=== PATIENT | male | born 1950 | race Asian ===

== ENCOUNTER 2019-10-03 12:42 | Inpatient (IN) | payer MEDICARE, MEDICAID ==
--- NOTE | 2019-10-03 15:08 | XRay Report ---
CHEST 1 VIEW 10/03/2019 2:37 PM INDICATION / CLINICAL INFORMATION: AMS. COMPARISON: One view of the chest from 12/11/2017. FINDINGS: SUPPORT DEVICES: None. HEART / MEDIASTINUM: Heart size is normal with mild aortic atherosclerosis. LUNGS / PLEURA: Bibasilar airspace opacities are noted. The upper lungs are clear. No significant ple ural effusion. No pneumothorax. ADDITIONAL FINDINGS: No significant additional findings. IMPRESSION: Bibasilar airspace opacities are concerning for pneumonia. Please correlate with the clinical finding s. Signer Name: Curt Hemphill MD Signed: 10/03/2019 3:04 PM Workstation Name: [id number]
[2019-10-03 15:15] LABS: Basophils % (Auto) 0.3 % (0.0-1.8); Eosinophils % (Auto) 0.1 % (0.0-4.3); Hematocrit 31.7 % (35.5-45.6); Hemoglobin 10.7 gm/dl (11.8-15.2); Lymphocytes # (Auto) 0.4 K/mm3 (1.2-5.4); Lymphocytes % (Auto) 4.5 % (13.4-35.0); Mean Corpuscular HGB Conc 34 % (32-34); Mean Corpuscular Volume 91 fl (84-94); Monocytes # (Auto) 0.5 K/mm3 (0.0-0.8); Monocytes % (Auto) 5.7 % (0.0-7.3); Platelet Count 115 K/mm3 (140-440); Red Blood Count 3.48 M/mm3 (3.65-5.03); Red Cell Distribution Width 15.7 % (13.2-15.2)
[2019-10-03 15:37] LABS: Alanine Aminotransferase 46 units/L (7-56); Albumin 3.3 g/dL (3.9-5); BUN/Creatinine Ratio 41; Blood Urea Nitrogen 37 mg/dL (9-20); Calcium 9.5 mg/dL (8.4-10.2); Hemolysis Index 6
--- NOTE | 2019-10-03 16:21 | Emergency Department Report ---
ED General Adult HPI - General Chief complaint: Fall Stated complaint: AMS Time Seen by Provider: 10/03/19 14:27 Source: EMS Mode of arrival: Stretcher Limitations: Physical Limitation - History of Present Illness Initial comments: Patient is a 69 Euro -[place] male with past medical history of hypertension congestive heart failure and diabetes as well as CVA with residual hemiparesis who is presenting with altered mental status. Patient was found shivering on the ground by paramedics. His family members called because of a possible seizure at home. Paramedics state that the shaking did not appear to be seizure-like. Patient is only a mL 2 states he knows he is at a clinic and he knows his name but he can not give any indication of the day. It is unknown whether this is the patient's baseline. Patient is unable to give any addit ional history as far as how he feels. - Related Data Home Medications Medication Instructions Recorded Confirmed Last Taken Doxazosin [Cardura] 4 mg PO QDAY 09/22/18 10/18/18 Unknown Finasteride [Proscar] 5 mg PO HS 09/22/18 10/18/18 Unknown Furosemide [Lasix TAB] 40 mg PO QDAY 09/22/18 10/18/18 Unknown Potassium Chloride [Klor-Con 10] 10 meq PO BID 09/22/18 10/18/18 Unknown Pravastatin [Pravachol] 80 mg PO QHS 09/22/18 10/18/18 Unknown Tamsulosin HCl [Flomax] 0.4 mg PO HS 09/22/18 10/18/18 Unknown hydrALAZINE [Apresoline TAB] 25 mg PO BID 09/22/18 10/18/18 Unknown raNITIdine HCl [Zantac] 150 mg PO BID 09/22/18 10/18/18 Unknown Previous Rx's Medication Instructions Recorded Last Taken Type Mupirocin [Bactroban 2% OINT] 1 applic TP TID 10 Days #1 tube 09/25/18 Unknown Rx Allergies Allergy/AdvReac Type Severity Reaction Status Date / Time amoxicillin Allergy Unknown Verified 10/17/18 11:45 ED Review of Systems ROS: Stated complaint: AMS Other details as noted in HPI Comment: Unobtainable due to pts medical conditions ED Past Medical Hx - Past Medical History Previous Medical History?: Yes Hx Hypertension: Yes Hx CVA: Yes (2017) Hx Diabetes: Yes Hx Dementia: Yes - Surgical History Past Surgical History?: No - Social History Smoking Status: Unknown if ever smoked Substance Use Type: None - Medications Home Medications: Home Medications Medication Instructions Recorded Confirmed Last Taken Type Doxazosin [Cardura] 4 mg PO QDAY 09/22/18 10/18/18 Unknown History Finasteride [Proscar] 5 mg PO HS 09/22/18 10/18/18 Unknown History Furosemide [Lasix TAB] 40 mg PO QDAY 09/22/18 10/18/18 Unknown History Potassium Chloride [Klor-Con 10] 10 meq PO BID 09/22/18 10/18/18 Unknown History Pravastatin [Pravachol] 80 mg PO QHS 09/22/18 10/18/18 Unknown History Tamsulosin HCl [Flomax] 0.4 mg PO HS 09/22/18 10/18/18 Unknown History hydrALAZINE [Apresoline TAB] 25 mg PO BID 09/22/18 10/18/18 Unknown History raNITIdine HCl [Zantac] 150 mg PO BID 09/22/18 10/18/18 Unknown History Mupirocin [Bactroban 2% OINT] 1 applic TP TID 10 Days #1 tube 09/25/18 10/18/18 Unknown Rx ED Physical Exam - General Limitations: Physical Limitation General appearance: alert, in no apparent distress - Head Head exam: Present: atraumatic, normocephalic - Eye Eye exam: Present: normal appearance, PERRL, EOMI - ENT ENT exam: Present: mucous membranes moist. Absent: normal exam, normal orophraynx - Neck Neck exam: Present: normal inspection - Respiratory Respiratory exam: Present: rhonchi. Absent: normal lung sounds bilaterally, respiratory distress, wheezes, stridor - Cardiovascular Cardiovascular Exam: Present: regular rate, normal rhythm, normal heart sounds. Absent: systolic murmur, diastolic murmur, rubs, gallop - GI/Abdominal GI/Abdominal exam: Present: soft, normal bowel sounds. Absent: distended, tenderness, guarding, rebound - Rectal Rectal exam: Present: deferred - Extremities Exam Extremities exam: Present: normal inspection, other (2+ lower extremity edema bilaterally. There is also chronic wounds on bilateral shins in various stages of healing. There is no erythema or purulent drainage from these wounds.) - Back Exam Back exam: Present: normal inspection - Neurological Exam Neurological exam: Present: altered. Absent: oriented X3, motor sensory deficit - Psychiatric Psychiatric exam: Present: normal affect, normal mood - Skin Skin exam: Present: warm, dry, intact, normal color. Absent: rash ED Course Vital Signs 10/03/19 13:14 Pulse Rate 68 Respiratory 12 Rate Blood Pressure 141/83 O2 Sat by Pulse 100 Oximetry - Reevaluation(s) Reevaluation #1: 10/03/19 16:17 Curb 65 score is a 3 and the patient warrants inpatient treatment ED Medical Decision Making - Lab Data Result diagrams: 10/03/19 14:50 10/03/19 14:50 Lab Results 10/03/19 10/03/19 10/03/19 Range/Units 14:50 14:50 14:50 WBC 8.2 (4.5-11.0) K/mm3 RBC 3.48 L (3.65-5.03) M/mm3 Hgb 10.7 L (11.8-15.2) gm/dl Hct 31.7 L (35.5-45.6) % MCV 91 (84-94) fl MCH 31 (28-32) pg MCHC 34 (32-34) % RDW 15.7 H (13.2-15.2) % Plt Count 115 L (140-440) K/mm3 Lymph % (Auto) 4.5 L (13.4-35.0) % [place] % (Auto) 5.7 (0.0-7.3) % Eos % (Auto) 0.1 (0.0-4.3) % Baso % (Auto) 0.3 (0.0-1.8) % Lymph # 0.4 L (1.2-5.4) K/mm3 [place] # 0.5 (0.0-0.8) K/mm3 Eos # 0.0 (0.0-0.4) K/mm3 Baso # 0.0 (0.0-0.1) K/mm3 Seg Neutrophils % 89.4 H (40.0-70.0) % Seg Neutrophils # 7.3 (1.8-7.7) K/mm3 Sodium 148 H (137-145) mmol/L Potassium 4.4 (3.6-5.0) mmol/L Chloride 111.4 H (98-107) mmol/L Carbon Dioxide 24 (22-30) mmol/L Anion Gap 17 mmol/L BUN 37 H (9-20) mg/dL Creatinine 0.9 (0.8-1.5) mg/dL Estimated GFR > 60 ml/min BUN/Creatinine Ratio 41 % Glucose 101 H (75-100) mg/dL Calcium 9.5 (8.4-10.2) mg/dL Total Bilirubin 0.30 (0.1-1.2) mg/dL AST 36 (5-40) units/L ALT 46 (7-56) units/L Alkaline Phosphatase 96 (35-129) units/L NT-Pro-B Natriuret Pep 218.3 (0-900) pg/mL Total Protein 6.7 (6.3-8.2) g/dL Albumin 3.3 L (3.9-5) g/dL Albumin/Globulin Ratio 1.0 % - Radiology Data CHEST 1 VIEW 10/03/2019 2:37 PM INDICATION / CLINICAL INFORMATION: AMS. COMPARISON: One view of the chest from 12/11/2017. FINDINGS: SUPPORT DEVICES: None. HEART / MEDIASTINUM: Heart size is normal with mild aortic atherosclerosis. LUNGS / PLEURA: Bibasilar airspace opacities are noted. The upper lungs are clear. No significant pleural effusion. No pneumothorax. ADDITIONAL FINDINGS: No significant additional findings. IMPRESSION: Bibasilar airspace opacities are concerning for pneumonia. Please correlate with the clinical findings. Signer Name: Curt Hemphill MD Signed: 10/03/2019 3:04 PM Workstation Name: [id number] - Medical Decision Making Has bilateral pneumonia. Patient's WBC count relatively low of 2018 and was between 2.8 5.4. Today's 8.2 which does show an increase from his baseline. Patient also has a BUNs of 37. In 2018 his IL interval was 15. Patient has a curb score 3 Hemmingsen patient criteria. Patient was started on Levaquin for the pneumonia and admitted to the hospitalist service. Critical care attestation.: If time is entered above; I have spent that time in minutes in the direct care of this critically ill patient, excluding procedure time. ED Disposition Clinical Impression: Bilateral pneumonia, Acute renal insufficiency, Acute encephalopathy, History of ulcer of lower limb Disposition: DC-09 OP ADMIT IP TO THIS HOSP Is pt being admited?: Yes Does the pt Need Aspirin: No Condition: Stable Instructions: Bacterial Pneumonia (ED) Time of Disposition: 16:22
[2019-10-03 19:43] LABS: Bilirubin,Urine NEG (Negative); Blood,Urine SM (Negative); Color,Urine Straw (Yellow); Mucus,Urine FEW /HPF; Protein,Urine <15 mg/dL mg/dL (Negative); Urobilinogen,Urine < 2.0 mg/dL (<2.0)
[2019-10-03] MEDS ORDERED: HYDROmorphone 1 MG/1 ML INJ IV PRN (22:27)
[2019-10-03] MEDS ORDERED: oxyCODONE /ACETAMINOPHEN 5-325MG TAB PO PRN (22:27)
[2019-10-03] MEDS ORDERED: ACETAMINOPHEN 325 MG TAB PO PRN (22:27)
[2019-10-03] MEDS ORDERED: ONDANSETRON 4 MG/2 ML INJ IV PRN (22:27)
[2019-10-03] MEDS ORDERED: NON-FORMULARY EACH (Ranitidine Hcl [Zantac] 150 MG) PO SCH (22:30)
[2019-10-03] MEDS ORDERED: hydrALAZINE 25 MG TAB PO SCH (23:00)
[2019-10-03] MEDS ORDERED: D5W/0.9% NACL 1,000 ML IV SCH (23:00)
[2019-10-03] MEDS: FAMOTIDINE 20 MG/2 ML INJ IV SCH (23:22)
[2019-10-03] MEDS: QUEtiapine 25 MG TAB PO SCH (23:22)
[2019-10-04 04:33] LABS: Basophils % (Auto) 0.3 % (0.0-1.8); Eosinophils % (Auto) 0.6 % (0.0-4.3); Hematocrit 31.3 % (35.5-45.6); Hemoglobin 10.6 gm/dl (11.8-15.2); Lymphocytes # (Auto) 0.4 K/mm3 (1.2-5.4); Lymphocytes % (Auto) 10.8 % (13.4-35.0); Mean Corpuscular HGB Conc 34 % (32-34); Mean Corpuscular Volume 91 fl (84-94); Monocytes # (Auto) 0.2 K/mm3 (0.0-0.8); Platelet Count 105 K/mm3 (140-440); Red Blood Count 3.45 M/mm3 (3.65-5.03); Red Cell Distribution Width 15.6 % (13.2-15.2)
[2019-10-04 04:58] LABS: Alanine Aminotransferase 41 units/L (7-56); Albumin 3.1 g/dL (3.9-5); BUN/Creatinine Ratio 41; Blood Urea Nitrogen 29 mg/dL (9-20); Calcium 9.2 mg/dL (8.4-10.2); Hemolysis Index 12
--- NOTE | 2019-10-04 06:59 | Event Note ---
Date: 10/03/19 See H/p in reports [place] pneumonia Volume depletion
--- NOTE | 2019-10-04 07:22 | History and Physical Report ---
CHIEF COMPLAINT: Fever and chills. HISTORY OF PRESENT ILLNESS: A 69-year-old -[place] male with a past medical history of hypertension, congestive heart failure, diabetes, cerebrovascular accident with residual hemiparesis, presents with altered mental status and fever and chills. The patient had possible seizure at home, but as per paramedics, it is more consistent with chills. The patient is altered and unable to tell the time and date. Unable to tell the person. The patient has been having cough. PAST MEDICAL HISTORY: Significant for BPH, congestive heart failure, hyperlipidemia, and hypertension. PAST SURGICAL HISTORY: None. SOCIAL HISTORY: Does not smoke. No alcohol, no recreational drugs. FAMILY HISTORY: Hypertension. CURRENT MEDICATIONS: On the chart including Flomax 0.4 p.o. at bedtime. PHYSICAL EXAMINATION: GENERAL: Elderly male, cooperative during examination. VITAL SIGNS: Initial blood pressure was 141/83, pulse is 68, temperature 102, respirations are 12, and sats 100%. HEENT: Unremarkable. Pupils are equal and reactive. NECK: Supple, no lymphadenopathy, no thyromegaly. LUNGS: Clear to auscultation and percussion. Scattered rhonchi bilaterally. CARDIOVASCULAR: S1, S2 heard. No gallop, no murmur, no rub. Apical impulse in left fifth intercostal space and midclavicular line. ABDOMEN: Soft and benign. No hepatosplenomegaly. No guarding, no rigidity. Hernial orifices are normal. EXTREMITIES: Good pedal pulses. No pedal edema. CENTRAL NERVOUS SYSTEM: Alert and oriented x 4, nonfocal exam. SKIN: Normal. LABORATORY DATA: White count is 8200, H and H is 10.7 and 31.7. Sodium is 148, BUN and creatinine is 37 and 0.9. Glucose is 101. Urine is negative. Chest x-ray shows bilateral pneumonia opacities and pneumonia. ASSESSMENT AND PLAN: 1. Bilateral pneumonia. The patient initiated on IV ceftriaxone, IV Zithromax, and IV fluids. DuoNebs as necessary. 2. Hypernatremia, half normal saline initiated changed to D5w iv fluid 3. Benign prostatic hypertrophy. Continue Proscar and Flomax. 4. Hyperlipidemia. Continue Pravachol. 5. Congestive heart failure. Continue Lasix 40 mg daily. 6. Hypertensive emergency. Hydralazine dose was increased to 50 q8h Valsartan 160 mg po bid added. 7. Deep venous thrombosis prophylaxis, heparin 5000 q. 12 and gastrointestinal prophylaxis. In summary, the patient has bilateral pneumonia, altered mental status, BPH, hypertension, hypertensive emergency, and hyperlipidemia. JOB# [id number] VSM/NTS MTDD
[2019-10-04] MEDS ORDERED: hydrALAZINE 20 MG/1 ML INJ IV PRN (07:33)
[2019-10-04] MEDS ORDERED: SODIUM CHLORIDE 0.45% 500 ML IV SCH (08:00)
[2019-10-04] MEDS: IPRATROPIUM/ALBUTEROL SULFATE 3 ML AMPUL.NEB IH SCH ×4 (08:20→20:20)
[2019-10-04] MEDS: DEXTROSE 5% IN WATER 1,000 ML IV SCH (09:38)
[2019-10-04] MEDS: DOXAZOSIN 4 MG TAB PO SCH (09:39)
[2019-10-04] MEDS: QUEtiapine 25 MG TAB PO SCH ×2 (09:39→22:23)
[2019-10-04] MEDS: hydrALAZINE 25 MG TAB PO SCH ×3 (09:39→22:22)
[2019-10-04] MEDS: POTASSIUM CHLORIDE ER 10 MEQ TAB PO SCH ×2 (09:39→22:21)
[2019-10-04] MEDS: FAMOTIDINE 20 MG/2 ML INJ IV SCH ×2 (09:39→22:23)
[2019-10-04] MEDS: FUROSEMIDE 40 MG TAB PO SCH (09:39)
[2019-10-04] MEDS: cefTRIAXone/NS 2 GM/100 ML 2 GM/100 ML BAG IV SCH (09:40)
[2019-10-04] MEDS: VALSARTAN 160MG TAB PO SCH ×2 (09:40→22:22)
[2019-10-04] MEDS: MUPIROCIN 2% OINT 22 GM TP SCH ×3 (09:41→22:25)
[2019-10-04] MEDS ORDERED: NON-FORMULARY EACH (Potassium Chloride [Klor-Con 10] 10 MEQ) PO SCH (10:00)
[2019-10-04] MEDS: AZITHROMYCIN 500 MG in SODIUM CHLORIDE 0.9% 250ML 250 ML IV SCH (10:25)
--- NOTE | 2019-10-04 16:41 | Progress Note ---
Assessment and Plan Assessment and plan: 69-year-old man who has a history of stroke with residual hemiparesis who was brought into the hospital by his daughter because he was found shivering bilat bacterial PNA, suspect gram-positive Sepsis Acute metabolic encephalopathy Due to sepsis, now resolved patient is at baseline mentation. Acute hypoxic respiratory failure Due to pneumonia, continue oxygen supplement History Interval history: Review of systems Constitutional: No fevers, no malaise, no joint pains CVS: No chest pain, no orthopnea, no pedal edema GI: No abdominal pain, no diarrhea, no vomiting, no constipation Respiratory: , no wheezing, no coughing Hospitalist Physical - Physical exam Narrative exam: General.: No distress HEENT: Moist mucous membranes, extraocular muscles intact, no lymphadenopathy Neck: supple Cardiac: S1-S2 heard Lungs: Rhonchi Abdomen: soft , nontender, nondistended, bowel sounds positive Extremities: no edema clubbing or cyanosis Skin: no rash or lesions Neurologic: no gross focal deficits Psych: calm, and cooperative - Constitutional Vitals: Temp Pulse Resp BP Pulse Ox 74 14 110/58 100 10/04/19 14:31 10/04/19 13:11 10/04/19 14:31 10/04/19 13:33 Results - Labs CBC & Chem 7: 10/04/19 03:47 10/04/19 03:47 Labs: Laboratory Last Values WBC 3.9 K/mm3 (4.5-11.0) L 10/04/19 03:47 RBC 3.45 M/mm3 (3.65-5.03) L 10/04/19 03:47 Hgb 10.6 gm/dl (11.8-15.2) L 10/04/19 03:47 Hct 31.3 % (35.5-45.6) L 10/04/19 03:47 MCV 91 fl (84-94) 10/04/19 03:47 MCH 31 pg (28-32) 10/04/19 03:47 MCHC 34 % (32-34) 10/04/19 03:47 RDW 15.6 % (13.2-15.2) H 10/04/19 03:47 Plt Count 105 K/mm3 (140-440) L 10/04/19 03:47 Lymph % (Auto) 10.8 % (13.4-35.0) L 10/04/19 03:47 [place] % (Auto) 5.0 % (0.0-7.3) 10/04/19 03:47 Eos % (Auto) 0.6 % (0.0-4.3) 10/04/19 03:47 Baso % (Auto) 0.3 % (0.0-1.8) 10/04/19 03:47 Lymph # 0.4 K/mm3 (1.2-5.4) L 10/04/19 03:47 [place] # 0.2 K/mm3 (0.0-0.8) 10/04/19 03:47 Eos # 0.0 K/mm3 (0.0-0.4) 10/04/19 03:47 Baso # 0.0 K/mm3 (0.0-0.1) 10/04/19 03:47 Seg Neutrophils % 83.3 % (40.0-70.0) H 10/04/19 03:47 Seg Neutrophils # 3.3 K/mm3 (1.8-7.7) 10/04/19 03:47 Sodium 147 mmol/L (137-145) H 10/04/19 03:47 Potassium 4.2 mmol/L (3.6-5.0) 10/04/19 03:47 Chloride 111.4 mmol/L (98-107) H 10/04/19 03:47 Carbon Dioxide 24 mmol/L (22-30) 10/04/19 03:47 Anion Gap 16 mmol/L 10/04/19 03:47 BUN 29 mg/dL (9-20) H 10/04/19 03:47 Creatinine 0.7 mg/dL (0.8-1.5) L 10/04/19 03:47 Estimated GFR > 60 ml/min 10/04/19 03:47 BUN/Creatinine Ratio 41 % 10/04/19 03:47 Glucose 78 mg/dL (75-100) 10/04/19 03:47 POC Glucose 166 (70-105) H 10/04/19 11:45 Calcium 9.2 mg/dL (8.4-10.2) 10/04/19 03:47 Total Bilirubin 0.30 mg/dL (0.1-1.2) 10/04/19 03:47 AST 33 units/L (5-40) 10/04/19 03:47 ALT 41 units/L (7-56) 10/04/19 03:47 Alkaline Phosphatase 79 units/L (35-129) 10/04/19 03:47 NT-Pro-B Natriuret Pep 218.3 pg/mL (0-900) 10/03/19 14:50 Total Protein 6.4 g/dL (6.3-8.2) 10/04/19 03:47 Albumin 3.1 g/dL (3.9-5) L 10/04/19 03:47 Albumin/Globulin Ratio 0.9 % 10/04/19 03:47 Urine Color Straw (Yellow) 10/03/19 19:20 Urine Turbidity Clear (Clear) 10/03/19 19:20 Urine pH 7.0 (5.0-7.0) 10/03/19 19:20 Ur Specific [place] 1.015 (1.003-1.030) 10/03/19 19:20 Urine Protein <15 mg/dl mg/dL (Negative) 10/03/19 19:20 Urine Glucose (UA) Neg mg/dL (Negative) 10/03/19 19:20 Urine Ketones Neg mg/dL (Negative) 10/03/19 19:20 Urine Blood Sm (Negative) 10/03/19 19:20 Urine Nitrite Neg (Negative) 10/03/19 19:20 Urine Bilirubin Neg (Negative) 10/03/19 19:20 Urine Urobilinogen < 2.0 mg/dL (<2.0) 10/03/19 19:20 Ur Leukocyte Esterase Neg (Negative) 10/03/19 19:20 Urine WBC (Auto) 2.0 /HPF (0.0-6.0) 10/03/19 19:20 Urine RBC (Auto) 5.0 /HPF (0.0-6.0) 10/03/19 19:20 Urine Mucus Few /HPF 10/03/19 19:20 Active Medications - Current Medications Current Medications: Generic Name Dose Route Start Last Admin Trade Name Freq PRN Reason Stop Dose Admin Acetaminophen 650 mg 10/03/19 22:27 Tylenol PO Q4H PRN Pain MILD(1-3)/Fever >100.5/ALCANTAR Albuterol/Ipratropium 1 ampul 10/04/19 08:00 10/04/19 13:08 Duoneb *Not For Prn Use* IH 1 ampul QIDRT HONEY Administration Doxazosin Mesylate 4 mg 10/04/19 10:00 10/04/19 09:39 Cardura PO 4 mg QDAY HONEY Administration Famotidine 20 mg 10/03/19 23:00 10/04/19 09:39 Pepcid IV 20 mg BID HONEY Administration Finasteride 5 mg 10/04/19 22:00 Proscar PO HS HONEY Furosemide 40 mg 10/04/19 10:00 10/04/19 09:39 Lasix PO 40 mg QDAY HONEY Administration Hydralazine HCl 50 mg 10/04/19 08:00 10/04/19 14:31 Apresoline PO 50 mg Q8HR HONEY Administration Hydralazine HCl 10 mg 10/04/19 07:33 Apresoline IV Q3H PRN Blood Pressure Hydromorphone HCl 0.5 mg 10/03/19 22:27 10/04/19 01:22 Dilaudid IV 0.5 mg Q3H PRN Administration Pain , Severe (7-10) Ceftriaxone Sodium 2 gm in 100 mls @ 200 mls/hr 10/04/19 10:00 10/04/19 09:40 Rocephin/Ns 2 Gm/100 Ml IV 200 mls/hr Q24HR HONEY Administration Protocol Azithromycin 500 mg/ Sodium 250 mls @ 250 mls/hr 10/04/19 10:00 10/04/19 10:25 Chloride IV 250 mls/hr Q24HR HONEY Administration Protocol Dextrose 1,000 mls @ 75 mls/hr 10/04/19 08:00 10/04/19 09:38 D5w IV 75 mls/hr DIRECT HONEY Administration Mupirocin 1 applic 10/04/19 08:00 10/04/19 14:32 Bactroban 2% TP 1 applic TID HONEY Administration Ondansetron HCl 4 mg 10/03/19 22:27 Zofran IV Q8H PRN Nausea And Vomiting Oxycodone/Acetaminophen 1 tab 10/03/19 22:27 Percocet 5/325 PO Q6H PRN Pain, Moderate (4-6) Potassium Chloride 10 meq 10/04/19 10:00 10/04/19 09:39 K-Dur PO 10 meq BID HONEY Administration Pravastatin Sodium 40 mg 10/04/19 22:00 Pravachol PO QHS HONEY Quetiapine Fumarate 25 mg 10/03/19 23:00 10/04/19 09:39 Seroquel PO 25 mg BID HONEY Administration Sodium Chloride 10 ml 10/04/19 10:00 10/04/19 09:41 Sodium Chloride Flush Syringe 10 Ml IV 10 ml BID HONEY Administration Sodium Chloride 10 ml 10/03/19 22:27 Sodium Chloride Flush Syringe 10 Ml IV PRN PRN LINE FLUSH Tamsulosin HCl 0.4 mg 10/04/19 22:00 Flomax PO HS HONEY Valsartan 160 mg 10/04/19 10:00 10/04/19 09:40 Diovan PO 160 mg BID HONEY Administration Nutrition/Malnutrition Assess - Dietary Evaluation Nutrition/Malnutrition Findings: Nutrition Notes Start: 10/04/19 12:27 Freq: Status: Active Protocol: Document 10/04/19 12:27 LP (Rec: 10/04/19 12:43 LP [id number]) Nutrition Notes Need for Assessment generated from: MD Order Initial or Follow up Assessment Current Diagnosis Acute Kidney Injury,Decubitus( Pressure Ulcer),Diabetes, Hypertension,Heart Failure, Stroke Other Pertinent Diagnosis Dementia, Pneu Current Diet No diet Labs/Tests Na 147 BUN 29 Pertinent Medications D5@75ml/hr Lasix KDUR Height 5 ft 9 in Weight 76.8 kg Usual Body Weight 81 kg [place] Body Weight (kg) 72.72 BMI 25.0 Weight change and time frame 6% wt loss in 1 year and not significant Subjective/Other Information Consult for oral supplement. Pt noted with slight temporal wasting and unable to comprehend speech. Pt denies wt loss. Pt was 81kg about 1 year ago according to previous records. Pt stated eating well [employer] and now. 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 Pt seem like food may also fall out of his mouth. Pt has bilateral leg wounds. Burn Absent Trauma Absent GI Symptoms None Minimum of two criteria Yes Muscle Mass Mild Depletion (non-severe) Fluid Accumulation Moderate to Severe (severe) Reduced Bell Cleaner Strength Measurably Reduced (severe) #2 Nutrition Diagnosis Increased nutrient needs ( specify in comment below) Comments: Protein Etiology wound healing and malnutrition As Evidenced by Signs and Symptoms Pt with bilateral leg wounds #1 Nutrition Diagnosis Malnutrition Etiology Advanced age/dementia As Evidenced by Signs and Symptoms Pt with 4+ edema, weak rn clinician strength, and slight muscle wasting. Is patient on ventilator? No Is Patient Ambulatory and/or Out of Bed Yes REE-([facility]-ambulatory/OOB) [ [id number] [id number]] Calculation Used for Recommendations [facility] Additional Notes Protein needs are 92-115g (1.2 -1.5g/kg) Fluid needs are 1ml/kcal Nutrition Intervention Change Diet Order: Pureed diet Add Supplement/Snack (indicate name/kcal Glucerna vanilla BID /protein ) Provides kCal: 440 Provides Protein (gm) 20 Goal #1 Meet at least 80% of kcal and protein needs Goal #2 Wound healing Anticipated Discharge Needs: Pureed diet with ONS BID Follow-Up By: 10/06/19 Additional Comments Follow for intakes and ONS tolerance
[2019-10-04] MEDS: TAMSULOSIN 0.4 MG CAP PO SCH (22:21)
[2019-10-04] MEDS: PRAVASTATIN 80 MG TAB PO SCH (22:21)
[2019-10-04] MEDS: FINASTERIDE 5 MG TAB PO SCH (22:23)
[2019-10-05] MEDS: DEXTROSE 5% IN WATER 1,000 ML IV SCH (00:26)
[2019-10-05] MEDS: hydrALAZINE 25 MG TAB PO SCH ×3 (05:09→22:45)
[2019-10-05] MEDS: IPRATROPIUM/ALBUTEROL SULFATE 3 ML AMPUL.NEB IH SCH ×3 (07:56→21:48)
[2019-10-05] MEDS ORDERED: ALBUTEROL 2.5 MG/3 ML NEBU IH PRN (08:02)
[2019-10-05] MEDS: MUPIROCIN 2% OINT 22 GM TP SCH ×3 (08:40→22:44)
[2019-10-05] MEDS ORDERED: DEXTROSE 50% IN WATER (25GM) 50 ML SYRINGE IV PRN (09:00)
[2019-10-05] MEDS: DEXTROSE 10% IN WATER 1,000 ML IV SCH (09:38)
[2019-10-05] MEDS: FAMOTIDINE 20 MG/2 ML INJ IV SCH ×2 (09:47→22:45)
[2019-10-05] MEDS: cefTRIAXone/NS 2 GM/100 ML 2 GM/100 ML BAG IV SCH (09:48)
[2019-10-05] MEDS: VALSARTAN 160MG TAB PO SCH ×2 (09:50→22:45)
[2019-10-05] MEDS: QUEtiapine 25 MG TAB PO SCH ×2 (09:50→22:46)
[2019-10-05] MEDS: FUROSEMIDE 40 MG TAB PO SCH (09:50)
[2019-10-05] MEDS: POTASSIUM CHLORIDE ER 10 MEQ TAB PO SCH ×2 (09:50→22:46)
[2019-10-05] MEDS: DOXAZOSIN 4 MG TAB PO SCH (09:51)
[2019-10-05] MEDS: AZITHROMYCIN 500 MG in SODIUM CHLORIDE 0.9% 250ML 250 ML IV SCH (10:25)
--- NOTE | 2019-10-05 15:33 | Progress Note ---
Assessment and Plan Assessment and plan: 69-year-old man who has a history of stroke with residual hemiparesis who was brought into the hospital by his daughter because he was found shivering bilat bacterial PNA, suspect gram-positive Sepsis Acute metabolic encephalopathy Due to sepsis, now resolved patient is at baseline mentation. Acute hypoxic respiratory failure Due to pneumonia, continue oxygen supplement History Interval history: Review of systems Constitutional: No fevers, no malaise, no joint pains CVS: No chest pain, no orthopnea, no pedal edema GI: No abdominal pain, no diarrhea, no vomiting, no constipation Respiratory: , no wheezing, no coughing Hospitalist Physical - Physical exam Narrative exam: General.: No distress HEENT: Moist mucous membranes, extraocular muscles intact, no lymphadenopathy Neck: supple Cardiac: S1-S2 heard Lungs: Rhonchi Abdomen: soft , nontender, nondistended, bowel sounds positive Extremities: no edema clubbing or cyanosis Skin: no rash or lesions Neurologic: no gross focal deficits Psych: calm, and cooperative - Constitutional Vitals: Temp Pulse Resp BP Pulse Ox 97.5 F L 87 20 110/61 94 10/05/19 13:17 10/05/19 14:30 10/05/19 14:30 10/05/19 14:07 10/05/19 13:17 Results - Labs CBC & Chem 7: 10/04/19 03:47 10/04/19 03:47 Labs: Laboratory Last Values WBC 3.9 K/mm3 (4.5-11.0) L 10/04/19 03:47 RBC 3.45 M/mm3 (3.65-5.03) L 10/04/19 03:47 Hgb 10.6 gm/dl (11.8-15.2) L 10/04/19 03:47 Hct 31.3 % (35.5-45.6) L 10/04/19 03:47 MCV 91 fl (84-94) 10/04/19 03:47 MCH 31 pg (28-32) 10/04/19 03:47 MCHC 34 % (32-34) 10/04/19 03:47 RDW 15.6 % (13.2-15.2) H 10/04/19 03:47 Plt Count 105 K/mm3 (140-440) L 10/04/19 03:47 Lymph % (Auto) 10.8 % (13.4-35.0) L 10/04/19 03:47 [place] % (Auto) 5.0 % (0.0-7.3) 10/04/19 03:47 Eos % (Auto) 0.6 % (0.0-4.3) 10/04/19 03:47 Baso % (Auto) 0.3 % (0.0-1.8) 10/04/19 03:47 Lymph # 0.4 K/mm3 (1.2-5.4) L 10/04/19 03:47 [place] # 0.2 K/mm3 (0.0-0.8) 10/04/19 03:47 Eos # 0.0 K/mm3 (0.0-0.4) 10/04/19 03:47 Baso # 0.0 K/mm3 (0.0-0.1) 10/04/19 03:47 Seg Neutrophils % 83.3 % (40.0-70.0) H 10/04/19 03:47 Seg Neutrophils # 3.3 K/mm3 (1.8-7.7) 10/04/19 03:47 Sodium 147 mmol/L (137-145) H 10/04/19 03:47 Potassium 4.2 mmol/L (3.6-5.0) 10/04/19 03:47 Chloride 111.4 mmol/L (98-107) H 10/04/19 03:47 Carbon Dioxide 24 mmol/L (22-30) 10/04/19 03:47 Anion Gap 16 mmol/L 10/04/19 03:47 BUN 29 mg/dL (9-20) H 10/04/19 03:47 Creatinine 0.7 mg/dL (0.8-1.5) L 10/04/19 03:47 Estimated GFR > 60 ml/min 10/04/19 03:47 BUN/Creatinine Ratio 41 % 10/04/19 03:47 Glucose 78 mg/dL (75-100) 10/04/19 03:47 POC Glucose 132 (70-105) H 10/05/19 11:34 Calcium 9.2 mg/dL (8.4-10.2) 10/04/19 03:47 Total Bilirubin 0.30 mg/dL (0.1-1.2) 10/04/19 03:47 AST 33 units/L (5-40) 10/04/19 03:47 ALT 41 units/L (7-56) 10/04/19 03:47 Alkaline Phosphatase 79 units/L (35-129) 10/04/19 03:47 NT-Pro-B Natriuret Pep 218.3 pg/mL (0-900) 10/03/19 14:50 Total Protein 6.4 g/dL (6.3-8.2) 10/04/19 03:47 Albumin 3.1 g/dL (3.9-5) L 10/04/19 03:47 Albumin/Globulin Ratio 0.9 % 10/04/19 03:47 Urine Color Straw (Yellow) 10/03/19 19:20 Urine Turbidity Clear (Clear) 10/03/19 19:20 Urine pH 7.0 (5.0-7.0) 10/03/19 19:20 Ur Specific [place] 1.015 (1.003-1.030) 10/03/19 19:20 Urine Protein <15 mg/dl mg/dL (Negative) 10/03/19 19:20 Urine Glucose (UA) Neg mg/dL (Negative) 10/03/19 19:20 Urine Ketones Neg mg/dL (Negative) 10/03/19 19:20 Urine Blood Sm (Negative) 10/03/19 19:20 Urine Nitrite Neg (Negative) 10/03/19 19:20 Urine Bilirubin Neg (Negative) 10/03/19 19:20 Urine Urobilinogen < 2.0 mg/dL (<2.0) 10/03/19 19:20 Ur Leukocyte Esterase Neg (Negative) 10/03/19 19:20 Urine WBC (Auto) 2.0 /HPF (0.0-6.0) 10/03/19 19:20 Urine RBC (Auto) 5.0 /HPF (0.0-6.0) 10/03/19 19:20 Urine Mucus Few /HPF 10/03/19 19:20 Active Medications - Current Medications Current Medications: Generic Name Dose Route Start Last Admin Trade Name Freq PRN Reason Stop Dose Admin Acetaminophen 650 mg 10/03/19 22:27 Tylenol PO Q4H PRN Pain MILD(1-3)/Fever >100.5/ALCANTAR Albuterol 2.5 mg 10/05/19 08:02 Proventil IH Q4HRT PRN Shortness Of Breath Albuterol/Ipratropium 1 ampul 10/05/19 14:00 10/05/19 14:30 Duoneb *Not For Prn Use* IH 1 ampul Q6HRT HONEY Administration Dextrose 25 ml 10/05/19 09:00 D50w (25gm) Syringe IV Q30MIN PRN Hypoglycemia Protocol Doxazosin Mesylate 4 mg 10/04/19 10:00 10/05/19 09:51 Cardura PO Not Given QDAY HONEY Famotidine 20 mg 10/03/19 23:00 10/05/19 09:47 Pepcid IV 20 mg BID HONEY Administration Finasteride 5 mg 10/04/19 22:00 10/04/19 22:23 Proscar PO 5 mg HS HONEY Administration Furosemide 40 mg 10/04/19 10:00 10/05/19 09:50 Lasix PO 40 mg QDAY HONEY Administration Hydralazine HCl 50 mg 10/04/19 08:00 10/05/19 14:07 Apresoline PO 50 mg Q8HR HONEY Administration Hydralazine HCl 10 mg 10/04/19 07:33 Apresoline IV Q3H PRN Blood Pressure Hydromorphone HCl 0.5 mg 10/03/19 22:27 10/04/19 01:22 Dilaudid IV 0.5 mg Q3H PRN Administration Pain , Severe (7-10) Ceftriaxone Sodium 2 gm in 100 mls @ 200 mls/hr 10/04/19 10:00 10/05/19 09:48 Rocephin/Ns 2 Gm/100 Ml IV 200 mls/hr Q24HR HONEY Administration Protocol Azithromycin 500 mg/ Sodium 250 mls @ 250 mls/hr 10/04/19 10:00 10/05/19 1 0:25 Chloride IV 250 mls/hr Q24HR HONEY Administration Protocol Dextrose 1,000 mls @ 75 mls/hr 10/05/19 09:30 10/05/19 09:38 D10w IV 75 mls/hr DIRECT HONEY Administration Mupirocin 1 applic 10/04/19 08:00 10/05/19 14:07 Bactroban 2% TP 1 applic TID HONEY Administration Ondansetron HCl 4 mg 10/03/19 22:27 Zofran IV Q8H PRN Nausea And Vomiting Oxycodone/Acetaminophen 1 tab 10/03/19 22:27 Percocet 5/325 PO Q6H PRN Pain, Moderate (4-6) Potassium Chloride 10 meq 10/04/19 10:00 10/05/19 09:50 K-Dur PO 10 meq BID HONEY Administration Pravastatin Sodium 40 mg 10/04/19 22:00 10/04/19 22:21 Pravachol PO 40 mg QHS HONEY Administration Quetiapine Fumarate 25 mg 10/03/19 23:00 10/05/19 09:50 Seroquel PO 25 mg BID HONEY Administration Sodium Chloride 10 ml 10/04/19 10:00 10/05/19 09:51 Sodium Chloride Flush Syringe 10 Ml IV 10 ml BID HONEY Administration Sodium Chloride 10 ml 10/03/19 22:27 Sodium Chloride Flush Syringe 10 Ml IV PRN PRN LINE FLUSH Tamsulosin HCl 0.4 mg 10/04/19 22:00 10/04/19 22:21 Flomax PO 0.4 mg HS HONEY Administration Valsartan 160 mg 10/04/19 10:00 10/05/19 09:50 Diovan PO Not Given BID HONEY Nutrition/Malnutrition Assess - Dietary Evaluation Nutrition/Malnutrition Findings: Nutrition Notes Start: 10/04/19 12:27 Freq: Status: Active Protocol: Document 10/04/19 12:27 LP (Rec: 10/04/19 12:43 LP [id number]) Nutrition Notes Need for Assessment generated from: MD Order Initial or Follow up Assessment Current Diagnosis Acute Kidney Injury,Decubitus( Pressure Ulcer),Diabetes, Hypertension,Heart Failure, Stroke Other Pertinent Diagnosis Dementia, Pneu Current Diet No diet Labs/Tests Na 147 BUN 29 Pertinent Medications D5@75ml/hr Lasix KDUR Height 5 ft 9 in Weight 76.8 kg Usual Body Weight 81 kg [place] Body Weight (kg) 72.72 BMI 25.0 Weight change and time frame 6% wt loss in 1 year and not significant Subjective/Other Information Consult for oral supplement. Pt noted with slight temporal wasting and unable to comprehend speech. Pt denies wt loss. Pt was 81kg about 1 year ago according to previous records. Pt stated eating well [employer] and now. Pt hands are closed but still able to fur buyer with thumb and pointer finger . Pt seem like food may also fall out of his mouth. Pt has bilateral leg wounds. Burn Absent Trauma Absent GI Symptoms None Minimum of two criteria Yes Muscle Mass Mild Depletion (non-severe) Fluid Accumulation Moderate to Severe (severe) Reduced Molded Goods Spot Picker Strength Measurably Reduced (severe) #2 Nutrition Diagnosis Increased nutrient needs ( specify in comment below) Comments: Protein Etiology wound healing and malnutrition As Evidenced by Signs and Symptoms Pt with bilateral leg wounds #1 Nutrition Diagnosis Malnutrition Etiology Advanced age/dementia As Evidenced by Signs and Symptoms Pt with 4+ edema, weak fur buyer strength, and slight muscle wasting. Is patient on ventilator? No Is Patient Ambulatory and/or Out of Bed Yes REE-([facility]-ambulatory/OOB) [ [id number] [id number]] Calculation Used for Recommendations [facility] Additional Notes Protein needs are 92-115g (1.2 -1.5g/kg) Fluid needs are 1ml/kcal Nutrition Intervention Change Diet Order: Pureed diet Add Supplement/Snack (indicate name/kcal Glucerna vanilla BID /protein ) Provides kCal: 440 Provides Protein (gm) 20 Goal #1 Meet at least 80% of kcal and protein needs Goal #2 Wound healing Anticipated Discharge Needs: Pureed diet with ONS BID Follow-Up By: 10/06/19 Additional Comments Follow for intakes and ONS tolerance
[2019-10-05] MEDS: FINASTERIDE 5 MG TAB PO SCH (22:45)
[2019-10-05] MEDS: TAMSULOSIN 0.4 MG CAP PO SCH (22:45)
[2019-10-05] MEDS: PRAVASTATIN 80 MG TAB PO SCH (22:45)
[2019-10-06] MEDS: DEXTROSE 10% IN WATER 1,000 ML IV SCH (00:15)
[2019-10-06] MEDS: IPRATROPIUM/ALBUTEROL SULFATE 3 ML AMPUL.NEB IH SCH ×2 (01:53→16:00)
[2019-10-06] MEDS: hydrALAZINE 25 MG TAB PO SCH (05:27)
--- NOTE | 2019-10-06 08:27 | Discharge Summary ---
Providers - Providers Date of Admission: 10/03/19 16:46 Attending physician: LOTTIE RIDDLE MD 10/04/19 00:35 Consult to Dietitian/Nutrition [CONS] Routine Physician Instructions: Reason For Exam: Reason for Consult: Pt needs oral supplement 10/04/19 08:43 Physical Therapy Evaluation and Treat [CONS] Routine Comment: Reason For Exam: weakness Primary care physician: REGISTERED NURSE CARDIAC Hospitalization Condition: Stable Hospital course: 69-year-old man who has a history of stroke with residual hemiparesis who was brought into the hospital by his daughter because he was found shivering bilat bacterial PNA, suspect gram-positive Sepsis -Patient received antibiotics Hypertensive urgency BP meds were optimized Acute metabolic encephalopathy Due to sepsis, now resolved patient is at baseline mentation. Acute hypoxic respiratory failure Due to pneumonia, continue oxygen supplement Patient was sent to a fpc facility per his daughter's request Disposition: [id number] SNF W [facility] C[facility] Time spent for discharge: 35 minutes Core Measure Documentation - Palliative Care Palliative Care/ Comfort Measures: Not Applicable - Core Measures Any of the following diagnoses?: none Exam - Physical Exam Narrative exam: General.: No distress HEENT: Moist mucous membranes, extraocular muscles intact, no lymphadenopathy Neck: supple Cardiac: S1-S2 heard Lungs: Rhonchi Abdomen: soft , nontender, nondistended, bowel sounds positive Extremities: no edema clubbing or cyanosis Skin: no rash or lesions Neurologic: Hemiparesis which is old Psych: calm, and cooperative - Constitutional Vitals: Temp Pulse Resp BP Pulse Ox 98.6 F 85 20 126/64 94 10/06/19 02:43 10/06/19 05:27 10/06/19 02:43 10/06/19 05:27 10/06/19 02:43 Plan Follow up with: ZURI GRIJALVA MD [Primary Care Provider] - 7 Days Prescriptions: Valsartan [Diovan] 80 mg PO DAILY #30 tablet levoFLOXacin [Levaquin] 750 mg PO QDAY #5 tablet
[2019-10-06 08:40] VITALS: BP 146/72
[2019-10-06] MEDS: MUPIROCIN 2% OINT 22 GM TP SCH (08:52)
[2019-10-06] MEDS: cefTRIAXone/NS 2 GM/100 ML 2 GM/100 ML BAG IV SCH (09:09)
[2019-10-06] MEDS: FAMOTIDINE 20 MG/2 ML INJ IV SCH (09:13)
[2019-10-06] MEDS: FUROSEMIDE 40 MG TAB PO SCH (09:13)
[2019-10-06] MEDS: QUEtiapine 25 MG TAB PO SCH (09:13)
[2019-10-06] MEDS: POTASSIUM CHLORIDE ER 10 MEQ TAB PO SCH (09:13)
[2019-10-06] MEDS: VALSARTAN 160MG TAB PO SCH (09:14)
[2019-10-06] MEDS: DOXAZOSIN 4 MG TAB PO SCH (09:15)
[2019-10-06] MEDS: AZITHROMYCIN 500 MG in SODIUM CHLORIDE 0.9% 250ML 250 ML IV SCH (10:30)
== END 2019-10-06 10:15 | DRG 871 ==
LOC: ED 12:42 → 3A 16:46 → 2B-ACE 18:24
PROVIDERS: ADMIT Internal Medicine; ATTEND Internal Medicine
DX: A41.9 Sepsis, unspecified organism (principal); G93.41 Metabolic encephalopathy; J18.9 Pneumonia, unspecified organism; J96.01 Acute respiratory failure with hypoxia; E87.0 Hyperosmolality and hypernatremia; I16.1 Hypertensive emergency; I69.359 Hemiplegia and hemiparesis following cerebral infarction affecting unspecified side; N28.9 Disorder of kidney and ureter, unspecified; E11.9 Type 2 diabetes mellitus without complications; E86.9 Volume depletion, unspecified; I11.0 Hypertensive heart disease with heart failure; N40.0 Benign prostatic hyperplasia without lower urinary tract symptoms; E78.5 Hyperlipidemia, unspecified; Z88.1 Allergy status to other antibiotic agents
CPT/HCPCS: 36415; 71045; 80053; 81001; 82962; 83880; 85025; 87040; 87116; 94640; 94760; G0378; A9270-GY; J0456; J0696; J1170; J1956; J7042; J7050; J7070